=== PATIENT | female | born 1945 | race Two or more races ===

== ENCOUNTER 2022-10-30 11:19 | Emergency (ER) | payer OTHER ==
[~2022-10-30] VITALS: Ht 154.9 cm; Wt 77.1 kg
[2022-10-30] MEDS ORDERED: LIPITOR40 M1 PO (11:43)
[2022-10-30] MEDS ORDERED: SYNTHROID50 MCG PO (11:43)
[2022-10-30] MEDS ORDERED: PRILOSEC OTC20 MG (11:44)
[2022-10-30] MEDS ORDERED: ACTOS15 MG PO (11:44)
== END 2022-10-30 17:06 | disposition home or self-care (01) ==
LOC: ER 11:19
DX: K57.92 Diverticulitis of intestine, part unspecified, without perforation or abscess without bleeding (principal); E78.00 Pure hypercholesterolemia, unspecified; E03.9 Hypothyroidism, unspecified; Z91.041 Radiographic dye allergy status